=== PATIENT | male | born 1985 | race African-American/Black ===

== ENCOUNTER 2018-05-10 10:03 | Emergency (ER) | payer MEDICARE, OTHER ==
[~2018-05-10] VITALS: Ht 188 cm; Wt 65.3 kg
[~2018-05-10 10:03] MED LIST: BENZTROPINE PO; NEXIUM40 MG PO; RISPERDAL0.5 MG PO; STRATTERA18 MG PO
--- OUTSIDE RECORDS SUMMARY | 2018-05-10 10:07 | XMS REPORT | Continuity of Care Document ---
Author Author [facility] Interface Address Unknown Phone Unavailable Problems Problem Status Onset Date Classification Date Reported Comments Source TOOTH ERUPTION DISTURBANCE Active 06/05/2017 [facility] Medications Medication Details Route Status Patient Instructions Ordering Provider Order Date Source Acetaminophen 24 MG/ML / Codeine Phosphate 2.4 MG/ML Oral Solution 10 ml, PO, Q6H, PRN Pain, X 10 day, # 200 mL, 0 Refill(s) Active 08/05/2017 [facility] ondansetron (ANES) Route: IV, Drug form: INJ, ONCE, Stop date: 08/05/17 10:59:00 CDT Inactive 08/05/2017 [facility] Ibuprofen 20 MG/ML Oral Suspension 400 mg=20 mL, PO, Q6H, PRN Pain, X 4 day, # 240 mL, 1 Refill(s) Active 08/05/2017 [facility] amoxicillin 400 mg/5 mL oral liquid 500 mg=6.25 mL, PO, TID, X 7 day, # 131 mL, 0 Refill(s) Active 08/05/2017 [facility] chlorhexidine gluconate 1.2 MG/ML Mouthwash [Peridex] 0.018 gm=15 mL, PO, BID, swish and spit; do not swallow, # 480 mL, 0 Refill(s) Active 08/05/2017 [facility] dexmedetomidine (ANES) + Sodium Chloride 0.9% IV (ANES) 98 mL Route: IV, Drug form: INJ, ONCE, Stop date: 08/05/17 10:23:00 CDT Inactive 08/05/2017 [facility] dexamethasone (ANES) Route: IV, Drug form: INJ, ONCE, Stop date: 08/05/17 9:43:00 CDT Inactive 08/05/2017 [facility] acetaminophen (ANES) 10 mg Route: IV, Drug form: INJ, Start date: 08/05/17 9:05:00 CDT, Stop date: 08/05/17 10:05:00 CDT Inactive 08/05/2017 [facility] Naloxone 0.4 mg, 1 mL, Route: IVP, Drug form: INJ, Q2MIN, Dosing Weight 72.727, kg, PRN Narcotic Reversal, Start date: 08/05/17 9:04:00 CDT, Duration: 8 doses or times, Stop date: Limited # of timesNotes: Same as Narcan No Longer Active 08/05/2017 [facility] Ondansetron 4 mg, 2 mL, Route: IVP, Drug form: INJ, ONCE, Dosing Weight 72.727, kg, PRN Nausea & Vomiting, Start date: 08/05/17 9:04:00 CDTNotes: (Same as: Zofran) MEDICATION WASTE Product Size: 4 mg Product Wasted: ___ mg No Longer Active 08/05/2017 [facility] Flumazenil 0.2 mg, 2 mL, Route: IVP, Drug form: INJ, PRN, Dosing Weight 72.727, kg, PRN Benzodiazepine Reversal, Initial dose, Start date: 08/05/17 9:04:00 CDT, Duration: 1 day, Stop date: 08/06/17 9:03:00 CDTN otes: (Same as: Romazicon) No Longer Active 08/05/2017 [facility] Hydromorphone 0.5 mg, 0.25 mL, Route: IVP, Drug form: INJ, Q5Min, Dosing Weight 72.727, kg, PRN Pain Score 7-10, Start date: 08/05/17 9:04:00 CDT, Duration: 4 doses or times, Stop date: Limited # of timesNotes: Sa me as Dilaudid No Longer Active 08/05/2017 [facility] Oxycodone 5 mg, 5 mL, Route: NG, Drug form: LIQ, Q4H, Dosing Weight 72.727, kg, PRN Pain Score 4-6, Start date: 08/05/17 9:04:00 CDT, Duration: 30 day, Stop date: 09/04/17 9:03:00 CDTNotes: (Same as: 'Roxicodone) No Longer Active 08/05/2017 [facility] rocuronium (ANES) Route: IV, Drug form: INJ, ONCE, Stop date: 08/05/17 8:53:00 CDT Inactive 08/05/2017 [facility] fentaNYL (ANES) Route: IV, Drug form: INJ, ONCE, Stop date: 08/05/17 8:44:00 CDT Inactive 08/05/2017 [facility] propofol (ANES) Route: IV, Drug form: INJ, ONCE, Stop date: 08/05/17 8:44:00 CDT Inactive 08/05/2017 [facility] lidocaine (ANES) Route: IV, Drug form: INJ, ONCE, Stop date: 08/05/17 8:44:00 CDT Inactive 08/05/2017 [facility] ceFAZolin (ANES) Route: IV, Drug form: INJ, ONCE, Stop date: 08/05/17 8:38:00 CDT Inactive 08/05/2017 [facility] Lactated Ringers Injection IV (ANES) 1000 mL Route: IV, Total Volume: 1,000, Start date: 08/05/17 7:45:00 CDT, Stop date: 08/05/17 8:45:00 CDT Inactive 08/05/2017 [facility] ceFAZolin + sterile water 20 mL 2 gm, Route: IV, PRE OP, Start date: 08/04/17 23:00:00 CDT, Duration: 1 day, Stop date: 08/05/17 22:59:00 CDT, ABX Indication: Surgical ProphylaxisNotes: (Same As: Aneesh Del Cid) MEDICATION WASTE Product Size: 1000 mg Product Wasted: ___ mg No Longer Active 08/05/2017 [facility] benztropine 0.5 mg oral tablet 0.5 mg=1 tab, PO, Daily, # 30 tab, 0 Refill(s) Active 08/01/2017 [facility] Risperidone 1 MG Oral Tablet [Risperdal] 1 mg=1 tab, PO, BID, # 60 tab, 0 Refill(s) Active 08/01/2017 [facility] atomoxetine 40 MG Oral Capsule [Strattera] 40 mg=1 cap, PO, QAM, # 30 cap, 0 Refill(s) Active 08/01/2017 [facility] Allergies, Adverse Reactions, Alerts Substance Category Reaction Severity Reaction type Status Date Reported Comments Source Immunizations Immunization Date Given Site Status Last Updated Comments Source Results Order Name Results Value Reference Range Date Interpretation Comments Source Vital Signs Vital Sign Value Date Comments Source Respitory Rate 20 08/05/2017 [facility] Systolic (mm Hg) 133 08/05/2017 [facility] Diastolic (mm Hg) 86 08/05/2017 [facility] Respitory Rate 21 08/05/2017 [facility] Systolic (mm Hg) 121 08/05/2017 [facility] Diastolic (mm Hg) 79 08/05/2017 [facility] Systolic (mm Hg) 133 08/05/2017 [facility] Diastolic (mm Hg) 88 08/05/2017 [facility] Respitory Rate 14 08/05/2017 [facility] Heart Rate 85 08/05/2017 [facility] BMI Calculated 20.04 08/05/2017 [facility] Height 190.5 cm 08/05/2017 [facility] Weight 72.727 08/05/2017 [facility] BMI Calculated 20.33 08/01/2017 [facility] Weight 71.818 08/01/2017 [facility] Height 187.96 cm 08/01/2017 [facility] Encounters Location Location Details Encounter Type Encounter Number Reason For Visit Attending Provider ADM Date DC Date Status Source [facility] [id number] Teo Zunigaena 08/05/2017 08/06/2017 [facility] Procedures Procedure Code Date Perfomer Comments Source Procedure<sup>1</sup> [id number] dental work [facility]
--- OUTSIDE RECORDS SUMMARY | 2018-05-10 10:07 | XMS REPORT | Summary of Care ---
Author Author [facility] Organization [facility] Address Unknown Phone Unavailable Encounter ELIZABETH Andrews(MIGUELITO) [id number] Date(s): 08/05/17 - 08/05/17 [facility] [address] [phone] Discharge Disposition: Home or Self Care Attending Physician: Teo Santos DMD Referring Physician: Teo Santos DMD Vital Signs 1 2 3 Most recent to oldest [Reference Range]: 190.5 cm (08/05/17 6:31 AM) 187.96 cm (08/01/17 3:05 PM) Height 133/86 mmHg (08/05/17 1:00 PM) 121/79 mmHg (08/05/17 12:45 PM) 133/88 mmHg (08/05/17 12:30 PM) Blood Pressure [90-140/60-90 mmHg] 20 BRMIN (08/05/17 1:00 PM) 21 BRMIN *HI* (08/05/17 12:45 PM) 14 BRMIN (08/05/17 12:30 PM) Respiratory Rate [14-20 BRMIN] 85 bpm (08/05/17 6:31 AM) Peripheral Pulse Rate [60-100 bpm] 72.727 kg (08/05/17 6:31 AM) 71.818 kg (08/01/17 3:05 PM) Weight 20.04 m2 (08/05/17 6:31 AM) 20.33 m2 (08/01/17 3:05 PM) Body Mass Index Problem List No data available for this section Allergies, Adverse Reactions, Alerts Substance Reaction Severity Status NKDA Active Medications acetaminophen (ANES) 10 mg Route: IV, Drug form: INJ, Start date: 08/05/17 9:05:00 CDT, Stop date: 08/05/17 10:05:00 CDT Start Date: 08/05/17 Stop Date: 08/05/17 Status: Completed acetaminophen-codeine 120 mg-12 mg/5 mL oral liquid 10 ml, PO, Q6H, PRN Pain, X 10 day, # 200 mL, 0 Refill(s) Start Date: 08/05/17 Stop Date: 08/15/17 Status: Ordered amoxicillin 400 mg/5 mL oral liquid 500 mg=6.25 mL, PO, TID, X 7 day, # 131 mL, 0 Refill(s) Start Date: 08/05/17 Stop Date: 08/12/17 Status: Ordered ANES flumazenil 0.2 mg, 2 mL, Route: IVP, Drug form: INJ, PRN, Dosing Weight 72.727, kg, PRN Christian zodiazepine Reversal, Initial dose, Start date: 08/05/17 9:04:00 CDT, Duration: 1 day, Stop date: 08/06/17 9:03:00 CDT Notes: (Same as: Romazicon) Start Date: 08/05/17 Stop Date: 08/06/17 Status: Discontinued ANES HYDROmorphone 0.5 mg, 0.25 mL, Route: IVP, Drug form: INJ, Q5Min, Dosing Weight 72.727, kg, RI N Pain Score 7-10, Start date: 08/05/17 9:04:00 CDT, Duration: 4 doses or times, Stop date: Limited # of times Notes: Same as Dilaudid Start Date: 08/05/17 Stop Date: 08/06/17 Status: Discontinued ANES naloxone 0.4 mg, 1 mL, Route: IVP, Drug form: INJ, Q2MIN, Dosing Weight 72.727, kg, PRN N arcotic Reversal, Start date: 08/05/17 9:04:00 CDT, Duration: 8 doses or times, Stop date: Limited # of times Notes: Same as Narcan Start Date: 08/05/17 Stop Date: 08/06/17 Status: Discontinued ANES ondansetron 4 mg, 2 mL, Route: IVP, Drug form: INJ, ONCE, Dosing Weight 72.727, kg, PRN Naus ea & Vomiting, Start date: 08/05/17 9:04:00 CDT Notes: (Same as: Zofran) MEDICATION WASTE Product Size: 4 mgProduct Was demetrio: ___ mg Start Date: 08/05/17 Stop Date: 08/06/17 Status: Discontinued ANES oxyCODONE 5 mg, 5 mL, Route: NG, Drug form: LIQ, Q4H, Dosing Weight 72.727, kg, PRN Pain S core 4-6, Start date: 08/05/17 9:04:00 CDT, Duration: 30 day, Stop date: 8 9:03:00 CDT Notes: (Same as: 'Roxicodone) Start Date: 08/05/17 Stop Date: 08/06/17 Status: Discontinued benztropine 0.5 mg oral tablet 0.5 mg=1 tab, PO, Daily, # 30 tab, 0 Refill(s) Start Date: 08/01/17 Status: Ordered ceFAZolin (ANES) Route: IV, Drug form: INJ, ONCE, Stop date: 08/05/17 8:38:00 CDT Start Date: 08/05/17 Stop Date: 08/05/17 Status: Completed ceFAZolin + sterile water 20 mL 2 gm, Route: IV, PRE OP, Start date: 08/04/17 23:00:00 CDT, Duration: 1 day, Sto p date: 08/05/17 22:59:00 CDT, ABX Indication: Surgical Prophylaxis Notes: (Same As: Aneesh Del Cid) MEDICATION WASTE Product Size: 1000 mgP roduct Wasted: ___ mg Start Date: 08/04/17 Stop Date: 08/06/17 Status: Discontinued dexamethasone (ANES) Route: IV, Drug form: INJ, ONCE, Stop date: 08/05/17 9:43:00 CDT Start Date: 08/05/17 Stop Date: 08/05/17 Status: Completed dexmedetomidine (ANES) + Sodium Chloride 0.9% IV (ANES) 98 mL Route: IV, Drug form: INJ, ONCE, Stop date: 08/05/17 10:23:00 CDT Start Date: 08/05/17 Stop Date: 08/05/17 Status: Completed fentaNYL (ANES) Route: IV, Drug form: INJ, ONCE, Stop date: 08/05/17 8:44:00 CDT Start Date: 08/05/17 Stop Date: 08/05/17 Status: Completed ibuprofen 100 mg/5 mL oral suspension 400 mg=20 mL, PO, Q6H, PRN Pain, X 4 day, # 240 mL, 1 Refill(s) Start Date: 08/05/17 Stop Date: 08/13/17 Status: Ordered Lactated Ringers Injection IV (ANES) 1000 mL Route: IV, Total Volume: 1,000, Start date: 08/05/17 7:45:00 CDT, Stop date: 8:45:00 CDT Start Date: 08/05/17 Stop Date: 08/05/17 Status: Completed lidocaine (ANES) Route: IV, Drug form: INJ, ONCE, Stop date: 08/05/17 8:44:00 CDT Start Date: 08/05/17 Stop Date: 08/05/17 Status: Deleted ondansetron (ANES) Route: IV, Drug form: INJ, ONCE, Stop date: 08/05/17 10:59:00 CDT Start Date: 08/05/17 Stop Date: 08/05/17 Status: Completed Peridex 0.12% topical liquid 0.018 gm=15 mL, PO, BID, swish and spit; do not swallow, # 480 mL, 0 Refill(s) Start Date: 08/05/17 Status: Ordered propofol (ANES) Route: IV, Drug form: INJ, ONCE, Stop date: 08/05/17 8:44:00 CDT Start Date: 08/05/17 Stop Date: 08/05/17 Status: Completed Risperdal 1 mg oral tablet 1 mg=1 tab, PO, BID, # 60 tab, 0 Refill(s) Start Date: 08/01/17 Status: Ordered rocuronium (ANES) Route: IV, Drug form: INJ, ONCE, Stop date: 08/05/17 8:53:00 CDT Start Date: 08/05/17 Stop Date: 08/05/17 Status: Completed Strattera 40 mg oral capsule 40 mg=1 cap, PO, QAM, # 30 cap, 0 Refill(s) Start Date: 08/01/17 Status: Ordered Results No data available for this section Immunizations No data available for this section Procedures Procedure Date Related Diagnosis Body Site Status Procedure1 Completed 1dental work Social History Social History Type Response Alcohol Never Smoking Status Never smoker; Exposure to Tobacco Smoke None; Cigarette Smoking Last 365 Days No; Reg Smoking Cessation Counseling No entered on: 08/05/17 Assessment and Plan No data available for this section
[2018-05-10] MEDS ORDERED: MINERAL OIL 132 ML BTL PR ONE (10:30)
[2018-05-10] MEDS ORDERED: DICYCLOMINE HCL 20 MG/2 ML VIAL IM ONE (10:30)
--- NOTE | 2018-05-10 11:04 | NUR ---
TATY CHIN,BODY [employer]OP MANAGER AT BEDSIDE FOR RECTAL EXAM, DIGITAL DISIMPACTION PERFORMED, SMALL AMOUNT OF HARD ROUND STOOL REMOVED, TOLERATED WELL. Sarah STAPLES RN AT BEDSIDE DURING EXAM. NO SIGNS OF ACUTE DISTRESS NOTED AT THIS TIME.
--- NOTE | 2018-05-10 11:30 | NUR ---
PATIENT HAD LARGE BOWEL MOVEMENT AFTER ENEMA, TOLERATED WELL. NO SIGNS OF ACUTE DISTRESS NOTED AT THIS TIME.
== END 2018-05-10 11:42 | disposition home or self-care (01) ==
LOC: ER 10:03
DX: R10.84 Generalized abdominal pain (principal); F84.0 Autistic disorder
CPT/HCPCS: 99284; J0500